=== PATIENT | female | born 1980 | race Caucasian/White ===

== ENCOUNTER 2018-06-09 20:08 | Emergency (ER) | payer MEDICAID, SELFPAY ==
[2018-06-09 20:29] VITALS: BMI 27.9
[2018-06-09] MEDS ORDERED: Betamethasone Soluspan 30 mg/5mL Inj Susp IM ONE (21:00)
--- NOTE | 2018-06-09 21:24 | OBDCSUM ---
Datetime: 06/09/2018 21:01 Discharged to, Provider: Home Follow up at, Provider: [facility] Disch Instr Activity: Normal activity Disch Instr Diet: Regular Discharge Time: 06/09/2018 21:02 Follow up in weeks, Provider: 06/10/2018 AT 8:30 PM Disch Referrals: None Disch Activity Restrictions: No lifting Discharge Diagnosis Prov Other: hemangionma
--- NOTE | 2018-06-09 21:25 | OBHP ---
Datetime: 06/09/2018 20:20 IP Adm Impression: , intrauterine IP Chief Complaint Other: Sent by [facility] for beta-methasone IP Admit Plan: Observation/Evaluation; Discharge home Admit Comment, IP Provider: 37 y/o female 36.2 wk GA sent to [facility] by Dr. Landis to recieve fi rst dose of beta-methasone. Patient has an abnormal quad, and fetus was found to have a liver mass. P vaishali is scheduled for repeat at [facility] at 38.0 wk GA. She denies CP, SOB, N/V. She denies vaginal bleeding/fluid loss. PMD: Dr. Landis Pmhx: denies Socialhx: denies tobacco, etoh, recreational drug use FamHx: denies Surghx: Allergies: NKDA HomeRx: ROS: negative except as above PE: Gen: comfortable, not in acute distress Heart: S1S2 present, RRR Lungs: normal breathing pattern, clear to auscultation bilaterally Abd: Gravid, soft, non-tender Extremities: No swelling, erythema, or calf tenderness Assessment and Plan 37 y/o female 36.2 GA intrauterine Abnormal quad screen, increased risk for T21, mother refused amniocentesis. B-methasone 12mg IM Q24Hrs Patient advised to return after 24hrs for second dose of steriods Case discussed w/ attending Patient stable for discharge w/ instructions to come back tomorrow Yelena Dover pgyi Addendum by Dr. Wolf: I have evaluated the patient independently and I agree with the above Pelvic Type - PN: Not Done Extremities - PN: Normal Abdomen - PN: Normal Back - PN: Not Done Breast - PN: Not Done Lungs - PN: Normal Heart - PN: Normal Thyroid - PN: Not Done Neurologic - PN: Not Done HEENT - PN: Not Done General - PN: Normal FHR - Baseline A Provider: 140 Vital Signs Provider: Reviewed; Within Normal Limits IP Chief Complaint: Other NICHD Variability Prov Fetus A: Moderate 6-25bpm NICHD Accel Fetus A IP Provider: 15X15 NICHD Decel Fetus A IP Provider: None Genitourinary Exam: Not Done DTRs - PN: Not Done
[2018-06-10 01:19] VITALS: BP 123/77; PULSE 75
== END 2018-06-09 21:10 | disposition home or self-care (01) ==
LOC: H.EROB2 20:08
DX: O35.8XX0 Maternal care for other (suspected) fetal abnormality and damage, not applicable or unspecified (principal); Z23 Encounter for immunization; Z3A.36 36 weeks gestation of pregnancy
CPT/HCPCS: 99281; J0702

== ENCOUNTER 2018-06-10 20:29 | Emergency (ER) | payer MEDICAID, SELFPAY ==
[2018-06-10 20:40] VITALS: BMI 27.5
[2018-06-10] MEDS ORDERED: Betamethasone Soluspan 30 mg/5mL Inj Susp IM ONE (21:00)
--- NOTE | 2018-06-10 21:18 | OBHP ---
Datetime: 06/10/2018 20:50 IP Adm Impression: , intrauterine IP Chief Complaint Other: sent by [facility] for beta methasone IP Admit Plan: Observation/Evaluation; Discharge home Admit Comment, IP Provider: 37 y/o female 36.3 wk GA was sent [facility] by Dr. Landis yesterday be ta-methasone. She is here today for second dose. Of note, patient has an abnormal quad, and fetus was found to have a liver mass. Patient is schedu led for repeat at [facility] at 38.0 wk GA. She denies CP, SOB, N/V. She denies vaginal b leeding/fluid loss. PMD: Dr. Landis Pmhx: denies Socialhx: denies tobacco, etoh, recreational drug use FamHx: denies Surghx: Allergies: NKDA HomeRx: ROS: negative except as above PE: Gen: comfortable, not in acute distress Heart: S1S2 present, RRR Lungs: normal breathing pattern, clear to auscultation bilaterally Abd: Gravid, soft, non-tender Extremities: No swelling, erythema, or calf tenderness Assessment and Plan 37 y/o female 36.3 GA intrauterine presents for second dose of steroids Abnormal quad screen, increased risk for T21, mother refused amniocentesis. B-methasone 12mg IM x 1 (today is second dose) Patient scheduled for follow up w/ M Dr. Landis 06/16/2018 Case discussed w/ attending inocencia Campos OB hospitalist Addendum: Pt seen by me. Agree w/ above. 37 yo at 36+3 wks for second dos e of Betamethasone. 06/09/2018 MFM u/s revealed an incidental finding of hemangioma in right liver. Pt to have a repeat c/s at 38 wks at [facility] on 06/22/2018. Pt received dose of BMZ. NST reactive. Pt discharged home. (ES) Pelvic Type - PN: Not Done Extremities - PN: Normal Abdomen - PN: Normal Back - PN: Not Done Breast - PN: Not Done Lungs - PN: Normal Heart - PN: Normal Thyroid - PN: Not Done Neurologic - PN: Not Done HEENT - PN: Not Done General - PN: Normal FHR - Baseline A Provider: 135 Contraction Comments Provider: none Gestation - Est Wks by US: 36.3 EGA AdmitDate IP: 36.3 Vital Signs Provider: Reviewed; Within Normal Limits IP Chief Complaint: Other NICHD Variability Prov Fetus A: Moderate 6-25bpm NICHD Accel Fetus A IP Provider: 15X15 NICHD Decel Fetus A IP Provider: None Genitourinary Exam: Not Done DTRs - PN: Not Done
--- NOTE | 2018-06-10 21:20 | OBDCSUM ---
Datetime: 06/10/2018 21:18 Discharged to, Provider: Home Follow up at, Provider: Dr. Landis Discharge Time: 06/10/2018 21:18 Follow up in weeks, Provider: 06/16/2018 Discharge Diagnosis Prov Other: Steroid administration for hemangioma
[2018-06-11 03:40] VITALS: BP 113/76; PULSE 78
== END 2018-06-10 21:30 | disposition home or self-care (01) ==
LOC: H.EROB2 20:29
DX: O36.5930 Maternal care for other known or suspected poor fetal growth, third trimester, not applicable or unspecified (principal); Z23 Encounter for immunization; Z3A.36 36 weeks gestation of pregnancy
CPT/HCPCS: 99281; J0702

== ENCOUNTER 2018-10-03 09:42 | Emergency (ER) | payer SELFPAY ==
[2018-10-03 09:52] VITALS: BP 107/72; PULSE 67; TEMP 97.6; O2SAT 98; BMI 25.0
[2018-10-03 10:33] VITALS: RESP 18
--- NOTE | 2018-10-03 11:03 | ED PDOC ---
Upper Extremity Pain/Injury Time Seen by Provider: 10/03/18 10:34 Chief Complaint (Nursing): Finger,Hand,&Wrist History Per: Patient History/Exam Limitations: language barrier (ericka used [id number]) Onset/Duration Of Symptoms: Days Additional Complaint(s): 37 yo healthy F who is presents for evaluation of left 3rd digit injury and redness. Pt reports over 1 week ago she had a blister that she scratched off, since then it will occasionally bleed. She saw her PMD 3 days ago, who started her on Keflex and Muprocin ointment which she just started yesterday. Pt reports that she was concerned due to surrounding redness, and unsure if she can take antibiotic while breast feeding. She is also asking if she needs stitches due to the occasional bleeding. Pt denies fever, chills, numbness or tingling, decrease motor or sensation PMD: Dr. Ras Rice Past Medical History Reviewed: Historical Data, Nursing Documentation, Vital Signs Vital Signs: Last Vital Signs Temp 97.6 F 10/03/18 10:24 Pulse 67 10/03/18 10:24 Resp 18 10/03/18 10:24 BP 107/72 10/03/18 10:24 Pulse Ox 98 10/03/18 10:24 - Medical History PMH: No Chronic Diseases - Family History Family History: States: No Known Family Hx - Allergies Allergies/Adverse Reactions: Allergies Allergy/AdvReac Type Severity Reaction Status Date / Time No Known Allergies Allergy Verified 06/09/18 20:29 Review of Systems Constitutional: Negative for: Fever Musculoskeletal: Positive for: Hand Pain Skin: Positive for: Rash Neurological: Negative for: Weakness, Numbness Physical Exam - Reviewed Nursing Documentation Reviewed: Yes Vital Signs Reviewed: Yes - Physical Exam Comments: GENERAL APPEARANCE: Patient is awake, alert, oriented x 3, in no acute distress. SKIN: Warm, dry; (-) cyanosis. CHEST AND RESPIRATORY: (-) chest wall tenderness. Lungs: (-) rales, (-) rhonchi, (-) wheezes; breath sounds equal bilaterally. HEART AND CARDIOVASCULAR: (-) irregularity; (-) murmur, (-) gallop. EXTREMITIES: pulses +2, capillary refill <2sec, LUE: 3rd digit (+)healed abrasion to base of digit on palmar aspect, mild swelling and erythema, no streaking, no active drainage of bleeding, mild tenderness, flexion and extension of entire digit intact, NVI (+) NEURO AND PSYCH: Mental status as above. - ECG O2 Sat by Pulse Oximetry: 98 Medical Decision Making Medical Decision Makin:43 healthy F with healed abrasion and possible infection, pt is already prescribed Keflex and Mupricon which she just started yesterday, has not taken full 24 hours, pt to continue with medications as prescribed, discussed diagnosis, treatment, strict return precautions and f/u with pt who is understanding, in agreement and stable for dc Disposition - Clinical Impression Clinical Impression: Finger abrasion, infected - Patient ED Disposition Is Patient to be Admitted: No Counseled Patient/Family Regarding: Studies Performed, Diagnosis, Need For Followup - Disposition Referrals: Richie Rice MD [Medical Doctor] - Disposition: Routine/Home Disposition Time: 11:03 Condition: STABLE Additional Instructions: Bootjack los medicamentos angela se prescribi anteriormente. Mantenga la herida limpia, seca y cubierta. Regrese a la ED para sntomas nuevos o que empeoran, fiebre> 100.4, aumento de enrojecimiento o hinchazn, no puede house mover supervisor el dedo. La atencin mdica de emergencia que recibi hoy se dirigi a nancy sntomas agudos. Si le recetaron algn medicamento, llnelo y tmelo segn las indicaciones. Los sntomas pueden tardar varios thompson en resolverse. Regrese al Departamento de Emergencias si nancy sntomas empeoran, no mejoran o si tiene otros problemas. Comunquese con maya mdico dentro de 2 thompson para yee nueva evaluacin y tea un seguimiento o llame a susan de los mdicos / clnicas a los que solorio sido referido y que figuran en el formulario de Informacin de visita al paciente que se incluye en maya paquete de jose daniel. Lleve todos los documentos que recibi al momento del jose daniel junto con los medicamentos que est tomando para maya visita de seguimiento. Nuestro tratamiento no puede reemplazar la atencin mdica continua por parte de un proveedor de atencin primaria (PCP) fuera del departamento de emergencias. Instructions: Skin Abrasions (DC), Wound Infection Print Language: THAI - POA Present On Arrival: None
== END 2018-10-03 11:23 | disposition home or self-care (01) ==
LOC: H.ER 09:42
DX: S60.413A Abrasion of left middle finger, initial encounter (principal); X58.XXXA Exposure to other specified factors, initial encounter; L08.9 Local infection of the skin and subcutaneous tissue, unspecified

== ENCOUNTER 2018-10-13 09:57 | Emergency (ER) | payer SELFPAY ==
[2018-10-13 09:58] VITALS: BMI 25.0
[2018-10-13 10:15] VITALS: BP 98/65; PULSE 63; RESP 18; TEMP 98.3; O2SAT 99
--- NOTE | 2018-10-13 10:42 | ED PDOC ---
HPI: General Adult Time Seen by Provider: 10/13/18 10:19 Chief Complaint (Nursing): Abnormal Skin Integrity Chief Complaint (Provider): Lesion, left middle finger History Per: Patient History/Exam Limitations: no limitations Onset/Duration Of Symptoms: Days Have you had recent travel within the past 21 days to any of the following countries: [place], [place], [place] or [place]?: No Additional Complaint(s): 37 yo female with no medical problems presents for evaluation of lesion on left middle finger for over 2 weeks. PT states she does not remember exactly when it happened, denies injury. Pt states she took a course of antibiotics prescribed by her PMD but it did not improve the area. Pt also reports itchiness around external genitals for 1 week. PT states it began shortly after taking antibiotics. Pt denies vaginal discharge, abdominal pain, N/V or fever. Past Medical History Reviewed: Historical Data, Nursing Documentation, Vital Signs Vital Signs: Last Vital Signs Temp 98.3 F 10/13/18 10:13 Pulse 63 10/13/18 10:13 Resp 18 10/13/18 10:13 BP 98/65 L 10/13/18 10:13 Pulse Ox 99 10/13/18 10:13 Primary Care Provider: FAMILY PROVIDER,NO - Medical History PMH: No Chronic Diseases - Surgical History Surgical History: No Surg Hx - Family History Family History: States: No Known Family Hx - Living Arrangements Living Arrangements: With Family - Social History Current smoker - smoking cessation education provided: No - Home Medications Home Medications: Ambulatory Orders Medication Instructions Recorded Fluconazole [Diflucan] 150 mg PO ONCE #1 tab 10/13/18 Salicylic Acid [Mediplast 1 each TP DAILY #21 adh..patch 10/13/18 [id number]] - Allergies Allergies/Adverse Reactions: Allergies Allergy/AdvReac Type Severity Reaction Status Date / Time No Known Allergies Allergy Verified 06/09/18 20:29 Review of Systems ROS Statement: Except As Marked, All Systems Reviewed And Found Negative Constitutional: Negative for: Fever Cardiovascular: Negative for: Chest Pain, Palpitations Respiratory: Negative for: Cough, Shortness of Breath Gastrointestinal: Negative for: Nausea, Vomiting Genitourinary Female: Positive for: Other. Negative for: Dysuria, Frequency, Vaginal Discharge, Pelvic Pain Skin: Positive for: Lesions Physical Exam - Reviewed Nursing Documentation Reviewed: Yes Vital Signs Reviewed: Yes - Physical Exam Appears: Positive for: Well, Non-toxic, No Acute Distress Head Exam: Positive for: ATRAUMATIC, NORMAL INSPECTION, NORMOCEPHALIC Skin: Positive for: Warm. Negative for: Normal Color ((+) wart on the palmar surface of the left middle finger, no surroudning erythema ) Eye Exam: Positive for: Normal appearance ENT: Positive for: Normal ENT Inspection Neck: Positive for: Normal, Painless ROM Respiratory: Negative for: Accessory Muscle Use, Respiratory Distress Gastrointestinal/Abdominal: Positive for: Normal Exam, Soft. Negative for: Tenderness Pelvic Exam: Negative for: External Exam Normal (Erythema of the external genitals, no discrete lesions, no vaginal discharge seen) Back: Positive for: Normal Inspection Extremity: Positive for: Normal ROM Neurological/Psych: Positive for: Awake, Alert, Normal Tone - ECG O2 Sat by Pulse Oximetry: 99 Pulse Ox Interpretation: Normal Disposition - Clinical Impression Clinical Impression: Wart, Vulvovaginitis - Patient ED Disposition Is Patient to be Admitted: No Counseled Patient/Family Regarding: Diagnosis, Need For Followup, Rx Given - Disposition Disposition: Routine/Home Disposition Time: 10:38 Condition: GOOD Prescriptions: Fluconazole [Diflucan] 150 mg PO ONCE #1 tab Salicylic Acid [Mediplast [id number]] 1 each TP DAILY #21 adh..patch Instructions: Warts on the Skin Print Language: MAORI
== END 2018-10-13 10:52 | disposition home or self-care (01) ==
LOC: H.ER 09:57
DX: N76.0 Acute vaginitis (principal); A63.0 Anogenital (venereal) warts

== ENCOUNTER 2018-10-19 10:34 | Emergency (ER) | payer SELFPAY ==
[2018-10-19 10:43] VITALS: O2SAT 99; BMI 24.8
--- NOTE | 2018-10-19 11:22 | ED PDOC ---
HPI: General Adult Time Seen by Provider: 10/19/18 11:02 Chief Complaint (Nursing): GI Problem History Per: Patient Onset/Duration Of Symptoms: Other (3 weeks) Current Symptoms Are (Timing): Intermittent Episodes Severity: Moderate Recent Trauma: Anal sex Additional Complaint(s): Intermittent rectal bleeding, mod amount assoc with clots x 3 weeks. Had anal receptive intercourse with 3 weeks ago. Denies abd pain. Denies pain on defecation. Denies fever or vomiting. Past Medical History Vital Signs: Last Vital Signs Temp 97.7 F 10/19/18 10:42 Pulse 66 10/19/18 10:42 Resp 14 10/19/18 10:42 BP 116/73 10/19/18 10:42 Pulse Ox 99 10/19/18 10:42 Primary Care Provider: Richie Rice - Medical History PMH: No Chronic Diseases - Family History Family History: States: Unknown Family Hx - Home Medications Home Medications: Ambulatory Orders Medication Instructions Recorded Fluconazole [Diflucan] 150 mg PO ONCE #1 tab 10/13/18 Salicylic Acid [Mediplast 1 each TP DAILY #21 adh..patch 10/13/18 [id number]] - Allergies Allergies/Adverse Reactions: Allergies Allergy/AdvReac Type Severity Reaction Status Date / Time No Known Allergies Allergy Verified 10/19/18 10:58 Review of Systems Constitutional: Negative for: Fever Gastrointestinal: Positive for: Hematochezia. Negative for: Nausea, Abdominal Pain, Diarrhea, Constipation Physical Exam - Physical Exam Appears: Positive for: Non-toxic, No Acute Distress Skin: Positive for: Normal Color, Warm, DRY Gastrointestinal/Abdominal: Positive for: Bowel Sounds, Soft. Negative for: Tenderness Rectal: Positive for: Mass (2 cm 12 oclock), Tenderness - Laboratory Results Result Diagrams: 10/19/18 11:44 10/19/18 11:44 - ECG O2 Sat by Pulse Oximetry: 99 Medical Decision Making Medical Decision Making: CT reveals pancreatic enlargement, pt has no abd pain or elevated Lipase. ? mass right colon, will have pt follow up with Dr. Guidry in [facility] who will arrange for GI follow up. Disposition - Clinical Impression Clinical Impression: Gastrointestinal hemorrhage, Mass of colon - Patient ED Disposition Is Patient to be Admitted: No Counseled Patient/Family Regarding: Studies Performed, Diagnosis, Need For Followup - Disposition Referrals: [facility] [Outside] Farheen Li MD [Medical Doctor] - Disposition: Routine/Home Disposition Time: 14:18 Condition: FAIR Additional Instructions: Follow up with Dr. Guidry on 11/11/2017 for GI follow up Instructions: Gastrointestinal Bleeding Forms: [facility] (Togolese) Print Language: UGANDAN
[2018-10-19 11:59] LABS: BASO % 0.2 % (0.0-2.0); EOS # 0.1 K/uL (0.0-0.7); EOS % 2.2 % (0.0-4.0); HEMOGLOBIN 12.9 g/dL (12.0-16.0); LYMPH % 46.6 % (20.0-40.0); MEAN CELL VOLUME 85.2 fl (81.0-99.0); MEAN CORPUSCULAR HEMOGLOBIN 29.1 pg (27.0-31.0); MEAN CORPUSCULAR HGB CONC 34.1 g/dL (33.0-37.0); MEAN PLATELET VOLUME 8.2 fl (7.2-11.7); MONO # 0.3 K/uL (0.0-0.8); MONO % 6.1 % (0.0-10.0); NEUT # 1.9 K/uL (1.8-7.0); NEUT % 44.9 % (50.0-75.0); RBC 4.45 Mil/uL (3.80-5.20); RED CELL DISTRIBUTION WIDTH 15.4 % (11.5-14.5); WHITE BLOOD COUNT 4.3 K/uL (4.8-10.8)
[2018-10-19 12:07] LABS: ALB/GLOB RATIO 1.3 (1.0-2.1); ALBUMIN 4.3 g/dL (3.5-5.0); ALT/SGPT 29 U/L (9-52); AST/SGOT 34 U/L (14-36); BLOOD UREA NITROGEN 15 mg/dl (7-17); CALCIUM 8.8 mg/dL (8.4-10.2); GFR NON-AFRICAN AMERICAN > 60
[2018-10-19] MEDS ORDERED: Iohexol 300 100 ML IJ ONE (12:35)
[2018-10-19] MEDS ORDERED: Sodium Chloride 0.9% 50 ML IV ONE (12:35)
--- NOTE | 2018-10-19 13:21 | CT ---
Date of service: 10/19/2018 PROCEDURE: CT Abdomen and Pelvis with contrast HISTORY: Rectal mass COMPARISON: None. TECHNIQUE: Contrast dose: 95 mL Omnipaque 300 Radiation dose: Total exam DLP = 353.17 mGy-cm. This CT exam was performed using one or more of the following dose reduction techniques: Automated exposure control, adjustment of the mA and/or kV according to patient size, and/or use of iterative reconstruction technique. FINDINGS: LOWER THORAX: Unremarkable. LIVER: Unremarkable. No gross lesion or ductal dilatation. GALLBLADDER AND BILE DUCTS: Unremarkable. PANCREAS: The pancreatic tail appears disproportionately larger than the remaining body no definite mass here is seen. Along the more proximal pancreatic body head segment is a thin rim of relative hypodensity between it and the collapsed gastric antrum is unclear if this relates to summation of the intervening fat here or if this could represent some mild peripancreatic fluid/a edema of a pancreatitis. Findings are more pronounced at the level of the body and head rather than at the diffusely area of greater enlargement namely the pancreatic tail segment. Correlation with the amylase levels is advised.. No gross lesion or ductal dilatation. SPLEEN: Unremarkable. ADRENALS: Unremarkable. No mass. KIDNEYS AND URETERS: Unremarkable. No hydronephrosis. No solid mass. VASCULATURE: Unremarkable. No aortic aneurysm. No aortic atherosclerotic calcification or mural plaque present. BOWEL: There is extensive stool throughout the left and right colon a few diverticuli are present. In the right colon there is a 3.2 by 2.4 cm area of relative homogeneous hypodensity some images of has slightly greater Hounsfield units than fluid. A a intra luminal mass in the right colon versus a stool ball without mottled gas within it the are differential considerations. Appearance is noted on axial series 2, image 48 and coronal series 601, image 49. No gross or significant appearing thickening here is believed present. Segments of the appendix are visualized and appear unremarkable. Small bowel loops appear within normal limits. There is some of fluid in the small bowel loops. History states rectal mass. There stool in the rectum noted. And some redundancy of the rectosigmoid loops which are filled with mottled stool. A discrete eccentric mass is not identified with certainty. APPENDIX: Segments of it are visualized and appear unremarkable. PERITONEUM: Unremarkable. No free fluid. No free air. LYMPH NODES: Unremarkable. No enlarged lymph nodes. BLADDER: Unremarkable. REPRODUCTIVE: Bilateral adnexal hypodensity probably relating to bilateral ovarian follicles and/or ovarian cysts-no suspicious appearing ovarian cyst noted. There is prompt asymmetrical enhancement along the left side of the uterus is could be physiologic. BONES: No acute fracture. OTHER FINDINGS: None IMPRESSION: Per these images, no clearly defined rectal mass is identified. Correlation with physical exam advised. Stool retention. In the ascending colon just proximal to the cecum there is a nonspecific low-density homogeneous hypodensity of unclear clinical significance-if any A homogeneous stool ball is 1 consideration-i an intraluminal mural based mass is another. No mottled gas here to more strongly suggest a stool ball is noted here.. No marked eccentric mural thickening is identified. Findings are indeterminate. Consider follow-up colonoscopy if needed. Pancreatic tail appears focally swollen-this can be seen with a a pancreatitis. Please see the above regarding possible edema and/or fluid more proximal anterior to the pancreatic body segment summation of fat here can simulate this. Amylase levels should help clarify these imaging appearances Other findings as above.
[2018-10-19 14:49] VITALS: BP 123/70; PULSE 68; RESP 15; TEMP 98.1
== END 2018-10-19 14:30 | disposition home or self-care (01) ==
LOC: H.ER 10:34
DX: K92.2 Gastrointestinal hemorrhage, unspecified (principal); K63.89 Other specified diseases of intestine
CPT/HCPCS: 74177; 80053; 81025; 83690; 85025; 99283; G0328; Q9967